=== PATIENT | male | born 1945 ===

== ENCOUNTER 2022-08-08 08:37 | Emergency (ER) | payer MEDICARE, OTHER ==
[2022-08-08 09:41] VITALS: BP 100/46; PULSE 76
== END 2022-08-08 09:55 | disposition home or self-care (01) ==
LOC: CC.ED 08:37
DX: M72.2 Plantar fascial fibromatosis (principal); M19.90 Unspecified osteoarthritis, unspecified site; I25.10 Atherosclerotic heart disease of native coronary artery without angina pectoris; I10 Essential (primary) hypertension; E78.00 Pure hypercholesterolemia, unspecified; K21.9 Gastro-esophageal reflux disease without esophagitis; Z95.5 Presence of coronary angioplasty implant and graft; Z79.02 Long term (current) use of antithrombotics/antiplatelets; Z79.82 Long term (current) use of aspirin; Z79.899 Other long term (current) drug therapy
CPT/HCPCS: 73630-LT; 99283